=== PATIENT | male | born 1965 | race Caucasian/White ===

== ENCOUNTER 2020-11-08 07:31 | Outpatient (CLI) | payer BC ==
--- NOTE | 2020-11-08 09:27 | MRI ---
MRI OF LEFT ANKLE: DATE: 11/08/2020. PROVIDED CLINICAL HISTORY: Left ankle pain and instability. FINDINGS: The anterior extensor, medial flexor, peroneal, and Achilles tendons demonstrate an intact MR appeara nce. There is greater than physiologic common peroneal tenosynovial fluid. Intact fibers of the anterior talofibular ligament are not identified. There is a prominently thicke ward and inhomogeneous appearance to the calcaneal fibular ligament. The lateral ankle ligaments appe ar otherwise intact. There is an inhomogeneous appearance to the deep fibers of the deltoid ligament that could reflect low-grade partial tear. No focal tibiotalar articular cartilage defect is apparent. Alignment appears anatomic. Joint space s appear preserved. No regional joint effusion is evident. There is preservation of the normal fat signal intensity within the tarsal sinus. The visualized por tions of the plantar aponeurosis appear intact. There is mild thickening involving the medial/centra l cord of the plantar aponeurosis of the calcaneal at the calcaneal attachment, associated with calca tereza enthesophyte formation. No focal concerning regional marrow or muscular signal abnormality is e vident. The courses of the regional major neurovascular structures appear unremarkable. IMPRESSION: 1. Intact fibers of the anterior talofibular ligament are not identified. Partial thickness tearing of the calcaneofibular ligament is demonstrated. Associated common peroneal tenosynovial fluid. 2. Possible low-grade partial tearing involving the deep fibers of the deltoid ligament. 3. 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 POS: AH
== END 2020-11-08 07:32 | disposition home or self-care (01) ==
LOC: TBSIIMAG 07:31
PROVIDERS: ATTEND Podiatrist Foot & Ankle Surgery
DX: S93.402A Sprain of unspecified ligament of left ankle, initial encounter (principal); M25.372 Other instability, left ankle